=== PATIENT | female | born 1985 | race Caucasian/White ===

== ENCOUNTER 2023-03-24 13:36 | Outpatient (CLI) | payer OTHER, SELFPAY ==
--- NOTE | 2023-03-24 14:00 | CRLHL7_ITS ---
For Patients: As a result of the Century Cures Act, medical imaging exams and procedure reports are released immediately into your electronic medical record. You may view this report before your referring provider. If you have questions, please contact your health care provider. CLINICAL HISTORY: PELVIC PAIN TECHNIQUE: 2D crystal scale ultrasound. In addition color Doppler and spectral Doppler analysis was performed of the pelvis using a transabdominal and transvaginal approach. FINDINGS: The myometrium has a normal uniform echotexture. The uterus measures 8.2 x 4.5 x 4.8 cm. The endometrial lining measures 16 mm in thickness. The right ovary measures 3.2 x 1.4 x 1.5 cm in size and the left ovary measures 4.1 x 2.7 x 2.6 cm. The ovaries demonstrate normal arterial and venous blood flow on color Doppler and spectral Doppler analysis. Mild pelvic free fluid is present. Hypoechoic left ovarian cyst is present measuring 3.0 x 1.7 x 2.4 cm. IMPRESSION: 3.0 cm hemorrhagic left ovarian cyst. No torsion. Dictated by Ariel Puente MD @ 03/27/2023 9:20:12 AM (Electronically Signed)
== END 2023-03-24 13:37 | disposition home or self-care (01) ==
LOC: US 13:39
PROVIDERS: PCP Registered Nurse; Visit Provider Registered Nurse
DX: R10.2 Pelvic and perineal pain (principal); N83.202 Unspecified ovarian cyst, left side
CPT/HCPCS: 76830; 76856; 93976

== ENCOUNTER 2023-06-06 16:28 | Outpatient (CLI) | payer OTHER, SELFPAY ==
--- OUTSIDE RECORDS SUMMARY | 2023-06-06 16:35 | XMS_ITS | Clinical Summary ---
Author Name Unknown Organization [facility] Address [address] [place] [address] Care Team Providers Care Sales Service Professional Name Role Phone Peter White MD Primary Care Provider [phone] Source Comments You are receiving this document as you are listed as the primary care provider,follow-up provider, or the patient has been referred to you for consultation.This is in compliance with the Medicare and[facility] EHR Incentive Program,which states Providers who transition their patient to another setting of careor provider of care or refers their patient to another provider of care shouldprovide summary care record for each transition of care or referral. [employer] Allergies No known active allergies Medications Medication Sig Dispensed Refills Start Date End Date Status Multiple Vitamin (MULTI-VITAMIN OR) Take 1 tablet by mouth daily (every 24 hours). 0 10/21/2014 Active predniSONE (DELTASONE) 5 MG tablet As needed for a flare: 15 mg/d x 5 d, 10 mg/d x 5 d, 7.5 mg/d x 5 d, 5 mg/d x 5 d then stop., 50 Tablet 2 02/11/2020 Active sulfaSALAzine (AZULFIDINE) 500 MG tablet TAKE 2 TABLETS BY MOUTH TWICE A DAY 120 Tablet 0 04/25/2023 Active Active Problems Problem Noted Date Diagnosed Date Encounter for long-term (current) use of medicat ions 12/03/2013 Overview: Encounter for long-term (current) use of other medications Rheumatoid arthritis 04/19/2012 Overview: Rheumatoid arthritis(714.0) ([facility]) Rheumatoid factor positive 03/22/2012 Elevated sedimentation rate 03/22/2012 Encounters Date Type Department Care Team Description 05/31/2023 Refill [facility] [address] [place] [address] Gianna Caba MD Refill 04/25/2023 Refill [facility] [address] [place] [address] Gianna Caba MD Refill from Last 3 Months Immunizations Name Administration Dates Next Due H1n1 Miv Sanofi 3+ Yr (Injected) 02/13/2012 Influenza IIV4 (Quadrivalent) 0.5mL (89493) 03/15,02/25/2014 Influenza, Unspecified Formulation 02/12/2017 Pfizer Monovalent 12+ Purple Top 10/20/2020,09/12 Social History Tobacco Use Types Packs/Day Years Used Date Smoking Tobacco: Never Smokeless Tobacco: Never Alcohol Use Standard Drinks/Week Comments No 0 (1 standard drink = 0.6 oz pur e alcohol) Sex and Gender Information Value Date Recorded Sex Assigned at Not on file Gender Identity Not on file Sexual Orientation Not on file Last Filed Vital Signs Vital Sign Reading Time Taken Comments Blood Pressure 108/63 03/11/2022 11:49 AM CDT Pulse 68 03/11/2022 11:49 AM CDT Temperature 37 ??C (98.6 ??F) 03/11/2022 11:49 AM CDT Respiratory Rate - - Oxygen Saturation - - Inhaled Oxygen Concentration - - Weight 74.4 kg (164 lb) 04/19/2019 4:06 PM HAND GLUER AND SLICER Height 171.5 cm (5' 7.5) 04/15/2015 1:57 PM HAND GLUER AND SLICER Body Mass Index 25.31 04/15/2015 1:57 PM HAND GLUER AND SLICER Plan of Treatment Health Maintenance Due Date Last Done Comments Cervical Cancer Screening Due 1984 Hep C Screening (Preventive Services) 1984 HepB (1) 1984 HIV Screening (Preventive Services) 2000 Adult Preventive Visit 2002 COVID-19 Vaccine ( season) 2023 10/20/2020, 09/30/2020 Influenza (#1) 2023 03/28/2019, 10/0 05/2016, 02/12/2017, Additional history exists DTaP/Tdap/Td (2 - Tdap) 12/17/2028 12/17/2018 Zoster/Shingles (1 of 2) 2034 HPV Vaccine Aged Out No longer eligi ble based on patient's age to complete this topic HepA Aged Out No longer eligi ble based on patient's age to complete this topic Hib Aged Out No longer eligi ble based on patient's age to complete this topic IPV (Polio) Aged Out No longer eligi ble based on patient's age to complete this topic MCV4 Aged Out No longer eligi ble based on patient's age to complete this topic Pneumococcal Aged Out No longer eligi ble based on patient's age to complete this topic Care Teams Sales Service Professional Relationship Specialty Start Date End Date Peter White MD [address] [place] [address] PCP - General 12/03/13
--- OUTSIDE RECORDS SUMMARY | 2023-06-06 16:35 | XMS_ITS | Encounter Summary ---
Author Name Unknown Organization [facility] Address [address] [place] [address] Care Team Providers Care Mycologist Name Role Phone Peter White MD Primary Care Provider [phone] Reason for Visit * Reason Comments Refill Encounter Details Date Type Department Care Team Description 04/25/2023 Refill [facility] [address] [place], [place] [id number] Jose Antonio Arreola MD [address] [place] [address] Refill Social History Tobacco Use Types Packs/Day Years Used Date Smoking Tobacco: Never Smokeless Tobacco: Never Alcohol Use Standard Drinks/Week Comments No 0 (1 standard drink = 0.6 oz pur e alcohol) Sex and Gender Information Value Date Recorded Sex Assigned at Not on file Gender Identity Not on file Sexual Orientation Not on file documented as of this encounter Nursing Notes * Lianne Akhtar RN - 04/25/2023 8:41 AM CST LV: 03/11/22 NV: overdue Lab Results Component Value Date WBC 6.2 08/29/2022 RBC 3.81 (L) 08/29/2022 Hemoglobin 11.5 (L) 08/29/2022 HCT 35.1 08/29/2022 MCV 92.1 08/29/2022 RDW 12.9 08/29/2022 Platelets 302 08/29/2022 Lab Results Component Value Date ALT (SGPT) 11 08/29/2022 Lab Results Component Value Date Creatinine 0.80 08/29/2022 Patient is overdue for follow up, danyel strickland sent and informed the pharmacy. Renewed medication per medication refill standing order. Requested Prescriptions Signed Prescriptions Disp Refills sulfaSALAzine (AZULFIDINE) 500 MG tablet 120 Tablet 0 Sig: TAKE 2 TABLETS BY MOUTH TWICE A DAY Authorizing Provider: JOSE ANTONIO ARREOLA Ordering User: LIANNE AKHTAR GER ADMINISTRATIVE documented in this encounter Plan of Treatment Not on file documented as of this encounter Visit Diagnoses Not on filedocumented in this encounter Care Teams Mycologist Relationship Specialty Start Date End Date Peter White MD [address] [place] [address] PCP - General 12/03/13 documented as of this encounter
--- OUTSIDE RECORDS SUMMARY | 2023-06-06 16:35 | XMS_ITS | Clinical Summary ---
Author Name Unknown Organization [email or web address] [place] [address] Care Team Providers Care Helicopter Pilot Name Role Phone Alayna Banuelos MD Primary Care Provider Allergies No known active allergies Medications Medication Sig Dispensed Refills Start Date End Date Status folic acid 1 mg tablet Take 1 tablet by mouth once daily. 0 12/17/2013 Active predniSONE (DELTASONE) 5 mg tablet Take 1 tablet by mouth once daily with a meal. 0 12/17/2013 Active methotrexate (RHEUMATREX) 2.5 mg tablet Take 1 tablet by mouth once weekly. 0 12/17/2013 Active Active Problems Problem Noted Date Diagnosed Date Rheumatoid arthritis Immunizations Name Administration Dates Next Due Influenza A (H1N1), Inactivated (Age >=3 Years) 02/13/2012 Influenza Virus, Unspecified 01/27/2013 Influenza, IIV3 (Age 6-35 mos) 02/15/2012 Influenza, IIV4 03/28/2019 Family History Medical History Relation Name Comments Heart Disease Father Has a pacemake r for irregular heart beat Cancer-prostate Paternal Grandfather Cancer-prostate Paternal Uncle Cancer-breast No Family History Cancer-colon No Family History Relation Name Status Comments Father Paternal Grandfather Paternal Uncle Social History Tobacco Use Types Packs/Day Years Used Date Smoking Tobacco: Never Smokeless Tobacco: Never Alcohol Use Standard Drinks/Week Comments No 0 (1 standard drink = 0.6 oz pur e alcohol) Sex and Gender Information Value Date Recorded Sex Assigned at Not on file Gender Identity Not on file Sexual Orientation Not on file Obstetrics History Para Term AB IAB SAB Ectopic Multiple Livin g Live Births 2 2 2 2 Date Outcome GA Total Labor Labor/2nd/3rd Weight Sex Delivery Anes PTL Ana Paula A1 A5 Name Cl in 06/24 Term 40w 0d F Vag Angelia e 01/03 Term 41w 0d F Vag Vita a Comments:GBS + Last Filed Vital Signs Vital Sign Reading Time Taken Comments Blood Pressure 92/52 12/17/2013 11:44 AM CDT Pulse 85 12/17/2013 11:44 AM CDT Temperature 36.9 ??C (98.5 ??F) 12/17/2013 1 1:44 AM CDT Respiratory Rate - - Oxygen Saturation 100% 12/17/2013 11: 44 AM CDT Inhaled Oxygen Concentration - - Weight 62.1 kg (136 lb 14.4 oz) 014 11:44 AM CDT Height 171 cm (5' 7.32) 12/17/2013 11: 44 AM CDT Body Mass Index 21.24 12/17/2013 11:44 AM CDT Plan of Treatment Health Maintenance Due Date Last Done Comments COVID-19 vaccine series (#1) 1984 Tdap 1995 Depression screening for age 12+ 1996 HIV for age 15-65 1999 BMI (ht and wt on same day) for age 18+ 2002 Hepatitis C screening for ag e 18-79 2002 Tetanus booster 2004 Pap test for age 21-65 2005 Influenza for age 9-49 01/13/2023 9, 01/27/2013, 02/13/2012 Pneumococcal series for age 6-64 Aged Out No longer eligible b ased on patient's age to complete this topic Care Teams Helicopter Pilot Relationship Specialty Start Date End Date Alayna Banuelos MD PCP - General Family Practice 05/09/13
--- OUTSIDE RECORDS SUMMARY | 2023-06-06 16:35 | XMS_ITS | Encounter Summary ---
Author Name Unknown Organization [facility] Address [address] [place] [address] Care Team Providers Care Pellet Machine Operator Name Role Phone Peter White MD Primary Care Provider [phone] Encounter Details Date Type Department Care Team Description 08/29/2022 2:50 PM CDT Lab Visit [facility] [address] [place] [address] Encounter for long-term (current) use of medications Social History Tobacco Use Types Packs/Day Years Used Date Smoking Tobacco: Never Smokeless Tobacco: Never Alcohol Use Standard Drinks/Week Comments No 0 (1 standard drink = 0.6 oz pur e alcohol) Sex and Gender Information Value Date Recorded Sex Assigned at Not on file Gender Identity Not on file Sexual Orientation Not on file documented as of this encounter Plan of Treatment Not on file documented as of this encounter Procedures Procedure Name Priority Date/Time Associated Diagnosis Comments CREATININE / GFR Routine 08/29/2022 2:45 PM CDT Encounter for long-term (current) use of medications ALT (SGPT) Routine 08/29/2022 2:45 PM CDT Encounter for long-term (current) use of medications CBC AND DIFFERENTIAL PANEL Routine 08/29/2022 2:44 PM CDT Encounter for long-term (current) use of medications COMPLETE BLOOD COUNT-W/DIFF Routine 08/29/2022 2:44 PM CDT Encounter for long-term (current) use of medications documented in this encounter Results * Creatinine / GFR (every 3 months) (08/29/2022 2:45 PM CDT) [facility] Creatinine 0.80 0.55 - 1.02 mg/dL 08/29/2022 6:02 PM CDT [facility] GFR, Estimated >60 >60 mL/min/1.7 3m2 08/29/2022 6:02 PM CDT [facility] Blood Venipuncture / Unknown 08/29/2022 2:45 PM CDT 08/29/2022 2:45 PM CDT Gianna Caba MD LAB_1 Performing Organization Address [facility]/ZIP Co de Phone Number [facility] [address] [place] [address], [facility] [phone] * ALT (SGPT) (every 3 months) (08/29/2022 2:45 PM CDT) [facility] ALT (SGPT) 11 <=55 U/L 08/29/2022 6:02 PM CDT [facility] Blood Venipuncture / Unknown 08/29/2022 2:45 PM CDT 08/29/2022 2:45 PM CDT Gianna Caba MD LAB_1 Performing Organization Address [facility]/ZIP Vt de Phone Number [facility] [address] [place] [address], [facility] [phone] * (ABNORMAL) Complete Blood Count-W/Diff (08/29/2022 2:44 PM CDT) [facility] WBC 6.2 3.5 - 10.5 x10(9)/L 08/29/2022 2:48 PM CDT [facility] RBC 3.81(L) 3.90 - 5.03 x10(12)/L 08/29/2022 2:48 PM CDT [facility] Hemoglobin 11.5(L) 12.0 - 15.5 g/dL 08/29/2022 2:48 PM CDT [facility] HCT 35.1 34.9 - 44.5 % 08/29/2022 2:48 PM T [facility] MCV 92.1 80.0 - 100.0 fL 08/29/2022 2:48 PM CDT [facility] MCH 30.2 27.6 - 33.3 pg 08/29/2022 2:48 PM CDT [facility] MCHC 32.8 31.5 - 35.2 g/dL 08/29/2022 2:48 PM CDT [facility] RDW 12.9 11.9 - 15.5 % 08/29/2022 2:48 PM CDT [facility] Platelets 302 150 - 450 x10(9)/L 08/29/2022 2:48 PM CDT [facility] Neutrophil Absolute 3.4 1.7 - 7.0 10(9)/L 08/29/2022 2:48 PM CDT [facility] Lymphocyte Absolute 1.5 1.0 - 4.8 10(9)/L 08/29/2022 2:48 PM CDT [facility] Monocyte Absolute 0.5 0.2 - 0.9 10(9)/L 08/29/2022 2:48 PM T [facility] Eosinophil Absolute 0.8(H) 0.0 - 0.5 10(9)/L 08/29/2022 2:48 PM CDT [facility] Basophil Absolute 0.1 0.0 - 0.3 10(9)/L 08/29/2022 2:48 PM CDT [facility] Immature Granulocyte % 0.2 0.0 - 0.5 % 08/29/2022 2:48 PM T [facility] Blood Venipuncture / Unknown 08/29/2022 2:44 PM CDT 08/29/2022 2:44 PM CDT Gianna Caba MD LAB_1 [facility] [address] [place] [address], [facility] [phone] documented in this encounter Visit Diagnoses Diagnosis Encounter for long-term (current) use of medications Encounter for long-term (current) use of other medications documented in this encounter Care Teams Pellet Machine Operator Relationship Specialty Start Date End Date Peter White MD [address] [place] [address] PCP - General 12/03/13 documented as of this encounter
--- OUTSIDE RECORDS SUMMARY | 2023-06-06 16:35 | XMS_ITS | Encounter Summary ---
Author Name Unknown Organization [facility] Address [address] [place] [address] Care Team Providers Care Director Of Strategic Initiatives Name Role Phone Peter White MD Primary Care Provider [phone] [phone] Reason for Visit * Reason Comments Refill Encounter Details Date Type Department Care Team Description 05/31/2023 Refill [facility] [address] [place] [address] Gianna Caba MD [address] [place], [place] [id number] Refill Social History Tobacco Use Types Packs/Day [...] Nursing Notes * Lianne Akhtar RN - 05/31/2023 7:52 AM CST LV: 03/11/22 NV: overdue Patient was sent a message on 05/01/23 that an appointment is needed for refills. Nothing has been scheduled. Called patient and LVM that an appointment is needed for refills, provided number to call and schedule. BING GUIDE documented in this encounter Plan of Treatment Not on file documented as of this encounter Visit Diagnoses Not on filedocumented in this encounter Care Teams Director Of Strategic Initiatives Relationship Specialty Start Date End Date Peter White MD [address] [place] [address] PCP - General 12/03/13 documented as of this encounter
--- OUTSIDE RECORDS SUMMARY | 2023-06-06 16:35 | XMS_ITS | Encounter Summary ---
Author Name Unknown Organization [facility] Address [address], [place] [address] Care Team Providers Care Hearing Aid Dispenser Name Role Phone Peter White MD Primary Care Provider [phone] Reason for Visit * Reason Comments Refill Encounter Details Date Type Department Care Team Description 10/27/2022 Refill [facility] [address] [place], [place] [address] Jose Antonio Arreola MD [address] [place] [address] Refill Social History Tobacco Use [...] Nursing Notes * Lianne Akhtar RN - 10/27/2022 7:59 AM CDT LV: 03/11/22 NV: n/a Patient had CBC, Creatinine, and ALT labs on 08/29/22 and values were within refill range. Renewed medication per medication refill standing order. Requested Prescriptions Signed Prescriptions Disp Refills sulfaSALAzine (AZULFIDINE) 500 MG tablet 360 Tablet 1 Sig: TAKE 2 TABLETS BY MOUTH TWO TIMES A DAY. Authorizing Provider: JOSE ANTONIO ARREOLA Ordering User: LIANNE AKHTAR documented in this encounter Plan of Treatment Not on file documented as of this encounter Visit Diagnoses Not on filedocumented in this encounter Care Teams Hearing Aid Dispenser Relationship Specialty Start Date End Date Peter White MD [address] [place] [address] PCP - General 12/03/13 documented as of this encounter
--- NOTE | 2023-06-06 17:00 | CRLHL7_ITS ---
For Patients: As a result of the Century Cures Act, medical imaging exams and procedure reports are released immediately into your electronic medical record. You may view this report before your referring provider. If you have questions, please contact your health care provider. CLINICAL HISTORY: Unspecified ovarian cyst, unspecified side Comparison: 03/24/2023 TECHNIQUE: 2D crystal scale and color Doppler images were acquired of the pelvis using a transvaginal approach. FINDINGS: On transvaginal imaging, the myometrium has a normal uniform echotexture. The uterus measures 8.5 x 4.3 x 5.6 cm. The endometrial lining measures 16 mm in thickness. The left ovary measures 3.9 x 1.6 x 1.9 cm in size and the right ovary measures 3.9 x 1.9 x 2.4 cm. The ovaries demonstrate normal arterial and venous blood flow on color Doppler analysis. There are no suspicious fluid collections within the cul-de-sac. IMPRESSION: Resolution of previously noted left ovarian cyst. Dictated by Ariel Puente MD @ 06/07/2023 8:37:54 AM (Electronically Signed)
== END 2023-06-06 16:29 | disposition home or self-care (01) ==
LOC: US 16:29
PROVIDERS: PCP Registered Nurse; Visit Provider Registered Nurse
DX: N83.209 Unspecified ovarian cyst, unspecified side (principal)
CPT/HCPCS: 76830